=== PATIENT | female | born 1990 | race Caucasian/White ===

== ENCOUNTER 2017-04-15 23:24 | Emergency (ER) | payer BC ==
[2017-04-16] MEDS ORDERED: ONDANSETRON 4 MG/2 ML VIAL IVP STA (00:26)
[2017-04-16] MEDS ORDERED: HYDROmorphone 1 MG/ML 1 ML SYRINGE IVP STA ×2 (00:26→01:42)
[2017-04-16] MEDS ORDERED: SODIUM CHLORIDE 0.9% 500 ML IV STA (00:26)
[2017-04-16 00:40] LABS: Basophils % (A) 1 %; CH 30.2; CHCM 33.8; Eosinophils # (A) 0.2 k/uL (0-0.7); Eosinophils % (A) 3 %; HCT 37.5 % (34.0-46.0); HDW 2.72; HGB 12.8 gm/dL (11.4-16.0); Luc % (Auto) 1; Lymphocytes # (A) 1.7 k/uL (1.0-4.8); Lymphocytes % (A) 24 %; MCH 30.7 pg (25.0-35.0); MCHC 34.2 g/dL (31.0-37.0); MCV 89.8 fL (80.0-100.0); Mean Platelet Volume 6.6; Monocytes # (A) 0.3 k/uL (0-1.0); Monocytes % (A) 4 %; Neutrophils # (A) 4.6 k/uL (1.3-7.7); Neutrophils % (A) 67 %; RBC 4.18 m/uL (3.80-5.40); RDW 13.1 % (11.5-15.5); WBC 6.9 k/uL (3.8-10.6); WBC (Perox) 6.99
[2017-04-16 00:44] LABS: Appearance,Urine Cloudy (Clear); Bilirubin,Urine Negative (Negative); Glucose,Urine (UA) Negative (Negative); Ketones,Urine Negative (Negative); Leukocyte Esterase,Urine Trace (Negative); Mucus,Urine Rare /hpf; Nitrite,Urine Negative (Negative); Particle Count 2695; Protein,Urine Negative (Negative); RBC,Urine <1 /hpf (0-5); Specific Gravity,Urine 1.012 (1.001-1.035); Squamous Epithelial Cell,Urine 3 /hpf (0-4); UA Billing (MACRO vs. MICRO) MICRO; Urobilinogen,Urine <2.0 mg/dL (<2.0); WBC,Urine 1 /hpf (0-5)
--- NOTE | 2017-04-16 00:53 | ED ---
General Adult HPI - General Chief complaint: Vaginal Bleeding Stated complaint: lower pelvic pain (post op hysterectomy x 2 wks) Time Seen by Provider: 04/15/17 23:52 Source: patient Mode of arrival: wheelchair Limitations: no limitations - History of Present Illness Initial comments: 27-year-old female patient presents to emergency department today for suprapubic pain. She states that around 11 AM this morning she did have onset of heavy vaginal bleeding that lasted approximately one hour. States she did have passage of a large clot. She states after the clot passed bleeding improved. She states she did have onset of pain at that time. States the pain has continued and seems to be worsening. She states that since that time she did have some clear vaginal discharge that has a foul odor. She states that she did have a transvaginal hysterectomy approximately 2 weeks ago. She states that she had this due to an extensive history of endometriosis and ovarian cysts. She states this procedure was performed by Dr. Maciel at [facility] in [facility]. She states that she had some pain symptoms for a couple days after the surgery however had vastly improved. She states Monday she was cleared to return to work. She states that she has been working however she performs no vigorous activities or heavy lifting while working. She states she is feeling somewhat nauseated with this however has not vomited. She believes this may be due to the pain. Patient denies any recent rash, fever, chills, shortness breath, chest pain, diarrhea, constipation , back pain, numbness, tingling, dizziness, weakness, hematuria, dysuria, urinary urgency, urinary frequency, headache, visual changes, or any other complaints. - Related Data Home Medications Medication Instructions Recorded Confirmed Estradiol [Estrace] 1 tab PO DAILY 04/15/17 04/15/17 HYDROcodone/APAP 5-325MG [[place] 1 tab PO Q6HR 04/15/17 04/15/17 5-325] Allergies Allergy/AdvReac Type Severity Reaction Status Date / Time acetaminophen Allergy Dyspnea Verified 04/15/17 23:30 [From Darvocet-N] ciprofloxacin [From Cipro] Allergy Nausea & Verified 04/15/17 23:30 Vomiting ketorolac [From Toradol] Allergy Dyspnea Verified 04/15/17 23:30 meperidine [From Demerol] Allergy Dyspnea Verified 04/15/17 23:30 propoxyphene Allergy Dyspnea Verified 04/15/17 23:30 [From Darvocet-N] Review of Systems ROS Statement: Those systems with pertinent positive or pertinent negative responses have been documented in the HPI. ROS Other: All systems not noted in ROS Statement are negative. Past Medical History Past Medical History: No Reported History History of Any Multi-Drug Resistant Organisms: None Reported Past Surgical History: Section, Hysterectomy Past Psychological History: No Psychological Hx Reported Smoking Status: Current every day smoker Past Alcohol Use History: None Reported Past Drug Use History: None Reported General Exam Limitations: no limitations General appearance: alert, in no apparent distress, other (This is a well- developed, well-nourished adult female patient in mild distress related to pain. Vital signs upon presentation were temperature 97.3F, pulse 56, respirations 16, blood pressure 118/82, pulse ox 100% on room air.) Eye exam: Present: normal appearance, PERRL, EOMI. Absent: scleral icterus, conjunctival injection, periorbital swelling ENT exam: Present: normal exam, normal oropharynx, mucous membranes moist Respiratory exam: Present: normal lung sounds bilaterally. Absent: respiratory distress, wheezes, rales, rhonchi, stridor Cardiovascular Exam: Present: regular rate, normal rhythm, normal heart sounds. Absent: systolic murmur, diastolic murmur, rubs, gallop, clicks GI/Abdominal exam: Present: soft, normal bowel sounds, other (Upper scopic incisions to abdomen are well approximated and healing. No surrounding erythema , no bulging, no induration.). Absent: distended, tenderness, guarding, rebound , rigid External exam: Present: normal external exam. Absent: erythema, lacerations, ecchymosis Speculum exam: Present: normal speculum exam, vaginal discharge (Light brown vaginal discharge. No odor.), other (Surgically absent cervix. No evidence of bleeding. No evidence of displaced cuff.) Neurological exam: Present: alert, oriented X3, CN II-XII intact Psychiatric exam: Present: normal affect, normal mood Skin exam: Present: warm, dry, intact, normal color. Absent: rash Course Vital Signs 04/15/17 04/16/17 23:26 02:12 Temperature 97.3 F L 98 F Pulse Rate 56 L 78 Respiratory 16 18 Rate Blood Pressure 118/82 112/62 O2 Sat by Pulse 100 98 Oximetry Medical Decision Making - Medical Decision Making 27-year-old female patient presented for evaluation of lower abdominal cramping and vaginal bleeding. The vaginal bleeding had occurred earlier in the day around 11 AM and she had not had any recurrence. Patient did have a transvaginal hysterectomy two weeks ago. Labs are unremarkable. Pelvic examination is unremarkable. Did perform a vaginal culture. Patient was feeling better after receiving Dilaudid. She'll be discharged home to follow- up as soon as possible with her surgeon. She is instructed to follow-up with her primary care physician for recheck in 1-2 days. She is instructed to return here immediately for any new, worsening, or concerning symptoms. Otherwise understanding and agreed with this plan. - Lab Data Result diagrams: 04/15/17 23:45 04/16/17 00:01 Lab Results 04/15/17 04/15/17 04/16/17 Range/Units 23:45 23:45 00:01 WBC 6.9 (3.8-10.6) k/uL RBC 4.18 (3.80-5.40) m/uL Hgb 12.8 (11.4-16.0) gm/dL Hct 37.5 (34.0-46.0) % MCV 89.8 (80.0-100.0) fL MCH 30.7 (25.0-35.0) pg MCHC 34.2 (31.0-37.0) g/dL RDW 13.1 (11.5-15.5) % Plt Count 233 (150-450) k/uL Neutrophils % 67 % Lymphocytes % 24 % Monocytes % 4 % Eosinophils % 3 % Basophils % 1 % Neutrophils # 4.6 (1.3-7.7) k/uL Lymphocytes # 1.7 (1.0-4.8) k/uL Monocytes # 0.3 (0-1.0) k/uL Eosinophils # 0.2 (0-0.7) k/uL Basophils # 0.0 (0-0.2) k/uL Sodium 140 (137-145) mmol/L Potassium 4.3 (3.5-5.1) mmol/L Chloride 105 (98-107) mmol/L Carbon Dioxide 23 (22-30) mmol/L Anion Gap 12 mmol/L BUN 14 (7-17) mg/dL Creatinine 0.80 (0.52-1.04) mg/dL Est GFR (MDRD) Af Amer >60 (>60 ml/min/1.73 sqM) Est GFR (MDRD) Non-Af >60 (>60 ml/min/1.73 sqM) Glucose 95 (74-99) mg/dL Calcium 9.9 (8.4-10.2) mg/dL Total Bilirubin 0.2 (0.2-1.3) mg/dL AST 20 (14-36) U/L ALT 30 (9-52) U/L Alkaline Phosphatase 73 (38-126) U/L Total Protein 7.3 (6.3-8.2) g/dL Albumin 4.1 (3.5-5.0) g/dL Urine Color Light Yellow Urine Appearance Cloudy H (Clear) Urine pH 6.0 (5.0-8.0) Ur Specific [place] 1.012 (1.001-1.035) Urine Protein Negative (Negative) Urine Glucose (UA) Negative (Negative) Urine Ketones Negative (Negative) Urine Blood Negative (Negative) Urine Nitrite Negative (Negative) Urine Bilirubin Negative (Negative) Urine Urobilinogen <2.0 (<2.0) mg/dL Ur Leukocyte Esterase Trace H (Negative) Urine RBC <1 (0-5) /hpf Urine WBC 1 (0-5) /hpf Ur Squamous Epith Cells 3 (0-4) /hpf Urine Mucus Rare H (None) /hpf Disposition Clinical Impression: Pelvic pain, Vaginal bleeding Disposition: HOME SELF-CARE Condition: Good Instructions: Pelvic Pain (ED) Additional Instructions: Follow-up with your surgeon in 1-2 days for recheck. Follow-up with her primary care physician for recheck. Return here immediately for any new, worsening, or concerning symptoms. Referrals: None,Stated [Primary Care Provider] - 1-2 days Time of Disposition: 02:03
[2017-04-16 00:54] LABS: ALT 30 U/L (9-52); AST 20 U/L (14-36); Alkaline Phosphatase 73 U/L (38-126); Anion Gap 12 mmol/L; Blood Urea Nitrogen 14 mg/dL (7-17); Calcium 9.9 mg/dL (8.4-10.2); Carbon Dioxide 23 mmol/L (22-30); Chloride 105 mmol/L (98-107); Glucose 95 mg/dL (74-99); Non-African American GFR(MDRD) >60 (>60 ml/min/1.73 sqM); Potassium 4.3 mmol/L (3.5-5.1); Sodium 140 mmol/L (137-145); Total Bilirubin 0.2 mg/dL (0.2-1.3); Total Protein 7.3 g/dL (6.3-8.2)
[2017-04-16 02:13] VITALS: BP 112/62; PULSE 78; RESP 18; TEMP 98
== END 2017-04-16 02:13 | disposition home or self-care (01) ==
LOC: EC 23:24 → MERGE 23:24 → EC 04-16 02:13
DX: N93.9 Abnormal uterine and vaginal bleeding, unspecified (principal); R10.2 Pelvic and perineal pain; F17.200 Nicotine dependence, unspecified, uncomplicated; Z79.891 Long term (current) use of opiate analgesic; Z79.3 Long term (current) use of hormonal contraceptives; Z88.1 Allergy status to other antibiotic agents; Z88.5 Allergy status to narcotic agent; Z88.6 Allergy status to analgesic agent
CPT/HCPCS: 96376 ×2; 96374 ×2; 96375 ×2; 99284 ×2; 36415 ×2; 80053; 85025; 81001; 87070; J2405; J1170; 87205

== ENCOUNTER 2017-11-24 18:50 | Emergency (ER) | payer BC, OTHER ==
[2017-11-24 19:21] VITALS: RESP 18
[2017-11-24] MEDS ORDERED: SODIUM CHLORIDE 0.9% 1,000 ML IV ONE (20:12)
[2017-11-24] MEDS ORDERED: MORPHINE SULFATE 4 MG/ML SYRINGE IVP STA (20:12)
[2017-11-24] MEDS ORDERED: ONDANSETRON 4 MG/2 ML VIAL IVP STA (20:12)
[2017-11-24 20:32] LABS: Basophils % (A) 0 %; Eosinophils # (A) 0.1 k/uL (0-0.7); Eosinophils % (A) 2 %; HCT 36.7 % (34.0-46.0); HGB 12.9 gm/dL (11.4-16.0); Lymphocytes # (A) 1.3 k/uL (1.0-4.8); Lymphocytes % (A) 22 %; MCH 29.3 pg (25.0-35.0); MCHC 35.1 g/dL (31.0-37.0); MCV 83.6 fL (80.0-100.0); Mean Platelet Volume 7.3; Monocytes # (A) 0.3 k/uL (0-1.0); Monocytes % (A) 5 %; Neutrophils # (A) 4.1 k/uL (1.3-7.7); Neutrophils % (A) 70 %; Platelet Count 163 k/uL (150-450); RBC 4.38 m/uL (3.80-5.40); RDW 13.7 % (11.5-15.5); WBC 5.8 k/uL (3.8-10.6)
[2017-11-24 20:34] LABS: Appearance,Urine Cloudy (Clear); Bilirubin,Urine Negative (Negative); Blood,Urine Large (Negative); Color,Urine Light Red; Glucose,Urine (UA) Negative (Negative); Ketones,Urine 1+ (Negative); Leukocyte Esterase,Urine Trace (Negative); Mucus,Urine Many /hpf; Nitrite,Urine Negative (Negative); Protein,Urine Trace (Negative); RBC,Urine >182 /hpf (0-5); Squamous Epithelial Cell,Urine 13 /hpf (0-4)
[2017-11-24 20:41] LABS: ALT 31 U/L (9-52); AST 21 U/L (14-36); Albumin 4.7 g/dL (3.5-5.0); Alkaline Phosphatase 74 U/L (38-126); Anion Gap 16 mmol/L; Blood Urea Nitrogen 8 mg/dL (7-17); Carbon Dioxide 23 mmol/L (22-30); Chloride 104 mmol/L (98-107); Glucose 89 mg/dL (74-99); Potassium 3.7 mmol/L (3.5-5.1); Sodium 143 mmol/L (137-145); Total Bilirubin 0.4 mg/dL (0.2-1.3); Total Protein 7.6 g/dL (6.3-8.2)
[2017-11-24] MEDS ORDERED: HYDROcodone/APAP 5-325MG 1 EACH TAB PO STA (21:07)
[2017-11-24] MEDS ORDERED: IBUPROFEN 600 MG TAB PO STA (21:07)
[2017-11-24] MEDS ORDERED: TAMSULOSIN 0.4 MG CAP.ER.24H PO STA (21:07)
--- NOTE | 2017-11-24 21:17 | US ---
EXAMINATION TYPE: US kidneys/renal and bladder DATE OF EXAM: 11/24/2017 COMPARISON: CT 05/01/2016 CLINICAL HISTORY: Left side Pain. Hematuria per patient EXAM MEASUREMENTS: Right Kidney: 9.2 x 4.1 x 3.9 cm Left Kidney: 10.0 x 4.6 x 3.9 cm Right Kidney: No hydronephrosis or masses seen Left Kidney: No hydronephrosis or masses seen Bladder: Not distended Bilateral Jets seen: No, bladder not distended. No hydronephrosis. . IMPRESSION: No evidence of renal stone or mass or obstruction. Bladder was almost empty for the exam. No hydronephrosis.
--- NOTE | 2017-11-24 21:28 | ED ---
Abdominal Pain HPI - General Chief Complaint: Abdominal Pain Stated Complaint: Pelvic pain Time Seen by Provider: 11/24/17 19:57 Source: patient Mode of arrival: ambulatory Limitations: no limitations - History of Present Illness Initial Comments: 27-year-old female patient percents the emergency department today for evaluation of left-sided flank pain. Patient states his been going on since this this afternoon. States it started suddenly. States that she did have a small amount of urinary incontinence at time of onset. Patient states that she has had kidney stones in the past and this feels similar. States that the pain radiates around into her left lower quadrant. States that she has had hematuria. States that she is feeling nauseated but has not vomited. She denies any fever, chills, constipation, diarrhea, vaginal bleeding, vaginal discharge, dizziness, or weakness. Patient has had a total hysterectomy and denies chance of . - Related Data Home Medications Medication Instructions Recorded Confirmed Estradiol [Estrace] 1 mg PO DAILY 04/15/17 11/24/17 Butalb/APAP/Caff 50-325-40Mg 1 tab PO DAILY PRN 11/24/17 11/24/17 [Fioricet 50-325-40] Multivitamins, Thera [Multivitamin 1 tab PO DAILY 11/24/17 11/24/17 (formulary)] Potassium Chloride [Klor-Con 10] 10 meq PO DAILY 11/24/17 11/24/17 Previous Rx's Medication Instructions Recorded Hydrocodone/Acetaminophen [[place] 1 tab PO Q6HR PRN #12 tab 11/24/17 5-325] Ibuprofen [Motrin] 600 mg PO Q8HR PRN #30 tab 11/24/17 Ondansetron [Zofran ODT] 4 mg PO Q8HR PRN #10 tab 11/24/17 Tamsulosin HCl [Flomax] 0.4 mg PO DAILY #7 cap 11/24/17 Allergies Allergy/AdvReac Type Severity Reaction Status Date / Time acetaminophen Allergy Dyspnea Verified 11/24/17 19:42 [From Darvocet-N] ciprofloxacin [From Cipro] Allergy Nausea & Verified 11/24/17 19:42 Vomiting ketorolac [From Toradol] Allergy Rash/Hives Verified 11/24/17 19:42 meperidine [From Demerol] Allergy Rash/Hives Verified 11/24/17 19:42 propoxyphene Allergy Dyspnea Verified 11/24/17 19:42 [From DarFindMySongt-N] Review of Systems ROS Statement: Those systems with pertinent positive or pertinent negative responses have been documented in the HPI. ROS Other: All systems not noted in ROS Statement are negative. Past Medical History Past Medical History: No Reported History Additional Past Medical History / Comment(s): hep C History of Any Multi-Drug Resistant Organisms: None Reported Past Surgical History: Section, Hysterectomy Additional Past Surgical History / Comment(s): laparoscopy Past Psychological History: No Psychological Hx Reported Smoking Status: Current every day smoker Past Alcohol Use History: None Reported Past Drug Use History: None Reported General Exam Limitations: no limitations General appearance: alert, in no apparent distress, other (This is a well- developed, well-nourished adult female patient in mild distress related to pain. Vital signs upon presentation are temperature 98.2F, pulse 87, respirations 18, blood pressure 111/73, pulse ox 99% on room air.) Eye exam: Present: normal appearance, PERRL, EOMI. Absent: scleral icterus, conjunctival injection, periorbital swelling ENT exam: Present: normal exam, normal oropharynx, mucous membranes moist Respiratory exam: Present: normal lung sounds bilaterally. Absent: respiratory distress, wheezes, rales, rhonchi, stridor Cardiovascular Exam: Present: regular rate, normal rhythm, normal heart sounds. Absent: systolic murmur, diastolic murmur, rubs, gallop, clicks GI/Abdominal exam: Present: soft, normal bowel sounds. Absent: distended, tenderness, guarding, rebound, rigid Back exam: Present: normal inspection, CVA tenderness (L). Absent: CVA tenderness (R) Neurological exam: Present: alert, oriented X3, CN II-XII intact Psychiatric exam: Present: normal affect, normal mood Skin exam: Present: warm, dry, intact, normal color. Absent: rash Course Vital Signs 11/24/17 11/24/17 19:17 21:57 Temperature 98.2 F 97.6 F Pulse Rate 87 56 L Respiratory 18 18 Rate Blood Pressure 111/73 106/58 O2 Sat by Pulse 99 100 Oximetry Medical Decision Making - Medical Decision Making 27-year-old female patient percents to to the emergency department today for complaints of left flank pain and nausea. Physical examination did reveal some mild CVA tenderness. No abdominal tenderness was noted. Labs reviewed and did show urinalysis positive for large amount of blood but no evidence of infection. Patient is afebrile. Patient states symptoms are somewhat her previous kidney stones. Ultrasound shows no evidence of hydronephrosis. We will treat patient for kidney stone with Flomax, pain management, and antiemetics. She is instructed to follow-up with urology as soon as possible. Return parameters discussed in detail. She verbalizes understanding and agrees with this plan. - Lab Data Result diagrams: 11/24/17 19:48 11/24/17 19:48 Lab Results 11/24/17 11/24/17 11/24/17 Range/Units 19:48 19:48 19:48 WBC 5.8 (3.8-10.6) k/uL RBC 4.38 (3.80-5.40) m/uL Hgb 12.9 (11.4-16.0) gm/dL Hct 36.7 (34.0-46.0) % MCV 83.6 (80.0-100.0) fL MCH 29.3 (25.0-35.0) pg MCHC 35.1 (31.0-37.0) g/dL RDW 13.7 (11.5-15.5) % Plt Count 163 (150-450) k/uL Neutrophils % 70 % Lymphocytes % 22 % Monocytes % 5 % Eosinophils % 2 % Basophils % 0 % Neutrophils # 4.1 (1.3-7.7) k/uL Lymphocytes # 1.3 (1.0-4.8) k/uL Monocytes # 0.3 (0-1.0) k/uL Eosinophils # 0.1 (0-0.7) k/uL Basophils # 0.0 (0-0.2) k/uL Sodium 143 (137-145) mmol/L Potassium 3.7 (3.5-5.1) mmol/L Chloride 104 (98-107) mmol/L Carbon Dioxide 23 (22-30) mmol/L Anion Gap 16 mmol/L BUN 8 (7-17) mg/dL Creatinine 0.79 (0.52-1.04) mg/dL Est GFR (CKD-EPI)AfAm >90 (>60 ml/min/1.73 sqM) Est GFR (CKD-EPI)NonAf >90 (>60 ml/min/1.73 sqM) Glucose 89 (74-99) mg/dL Calcium 10.0 (8.4-10.2) mg/dL Total Bilirubin 0.4 (0.2-1.3) mg/dL AST 21 (14-36) U/L ALT 31 (9-52) U/L Alkaline Phosphatase 74 (38-126) U/L Total Protein 7.6 (6.3-8.2) g/dL Albumin 4.7 (3.5-5.0) g/dL Urine Color Light Red Urine Appearance Cloudy H (Clear) Urine pH 6.0 (5.0-8.0) Ur Specific [place] 1.020 (1.001-1.035) Urine Protein Trace H (Negative) Urine Glucose (UA) Negative (Negative) Urine Ketones 1+ H (Negative) Urine Blood Large H (Negative) Urine Nitrite Negative (Negative) Urine Bilirubin Negative (Negative) Urine Urobilinogen 2.0 (<2.0) mg/dL Ur Leukocyte Esterase Trace H (Negative) Urine RBC >182 H (0-5) /hpf Ur Squamous Epith Cells 13 H (0-4) /hpf Urine Mucus Many H (None) /hpf - Radiology Data Radiology results: report reviewed, image reviewed Ultrasound of the kidneys and bladder were obtained. Right kidney shows no hydronephrosis or masses. Left kidney shows no hydronephrosis or masses. Bladder is not distended. Impression by Dr. Elizabeth shows no evidence of renal stone or mass or obstruction. Bladder was almost empty for exam. No hydronephrosis. Disposition Clinical Impression: Kidney stone on left side Disposition: HOME SELF-CARE Condition: Good Instructions: Kidney Stones (ED), How to Strain Your Urine (ED) Additional Instructions: Increase fluids. Follow-up with urology as soon as possible. Take medications as directed. Return here immediately for any new, worsening, or concerning symptoms. Prescriptions: Hydrocodone/Acetaminophen [[place] 5-325] 1 tab PO Q6HR PRN #12 tab PRN Reason: Pain Ibuprofen [Motrin] 600 mg PO Q8HR PRN #30 tab PRN Reason: Pain Ondansetron [Zofran ODT] 4 mg PO Q8HR PRN #10 tab PRN Reason: Nausea Tamsulosin HCl [Flomax] 0.4 mg PO DAILY #7 cap Is patient prescribed a controlled substance at d/c from ED?: Yes When asked, does pt state using other controlled substances?: No Referrals: None,Stated [Primary Care Provider] - 1-2 days Time of Disposition: 21:28
[2017-11-24 21:58] VITALS: BP 106/58; PULSE 56; TEMP 97.6
== END 2017-11-24 21:59 | disposition home or self-care (01) ==
LOC: EC 18:50
DX: N20.0 Calculus of kidney (principal); F17.200 Nicotine dependence, unspecified, uncomplicated; Z86.19 Personal history of other infectious and parasitic diseases; Z79.3 Long term (current) use of hormonal contraceptives; Z79.899 Other long term (current) drug therapy; Z88.1 Allergy status to other antibiotic agents; Z88.5 Allergy status to narcotic agent; Z88.6 Allergy status to analgesic agent
CPT/HCPCS: 36415; 80053; 85025; 81001; 87086; 76770; 99284; 96374; 96375; 96361; J2270; J2405

== ENCOUNTER 2019-06-02 00:37 | Emergency (ER) | payer OTHER ==
[2019-06-02] MEDS ORDERED: SODIUM CHLORIDE 0.9% 1,000 ML IV STA (00:57)
[2019-06-02] MEDS ORDERED: ONDANSETRON 4 MG/2 ML VIAL IVP STA (00:57)
[2019-06-02] MEDS ORDERED: HYDROmorphone 1 MG/ML 1 ML SYRINGE IVP STA ×2 (00:57→02:22)
--- NOTE | 2019-06-02 01:06 | ED ---
Abdominal Pain HPI - General Chief Complaint: Abdominal Pain Stated Complaint: Hematuria Abd Pain Time Seen by Provider: 06/02/19 00:50 Source: patient Mode of arrival: ambulatory Limitations: no limitations - History of Present Illness Initial Comments: 29-year-old female patient presents to the emergency department today for evaluation of left flank pain and left lower quadrant abdominal pain. Patient states this started a few hours ago. Patient states the pain is waxing and waning. States she is having hematuria. She does have history of kidney stones and states this pain feels similar. States she has had some nausea and a couple episodes of vomiting. Denies fever or chills. Patient has history of hysterectomy. Denies any cough or congestion. Patient denies any recent rash, shortness breath, chest pain, diarrhea, constipation, back pain, numbness, tingling, dizziness, weakness, hematuria, dysuria, urinary urgency, urinary frequency, headache, visual changes, or any other complaints. - Related Data Home Medications Medication Instructions Recorded Confirmed Estradiol [Estrace] 2 mg PO DAILY 04/15/17 06/02/19 Previous Rx's Medication Instructions Recorded Cephalexin [Keflex] 500 mg PO Q6HR #40 cap 06/02/19 Ibuprofen [Motrin] 600 mg PO Q8HR PRN #30 tab 06/02/19 Ondansetron [Zofran ODT] 4 mg PO Q8HR PRN #10 tab 06/02/19 Tamsulosin HCl [Flomax] 0.4 mg PO DAILY #7 cap 06/02/19 Allergies Allergy/AdvReac Type Severity Reaction Status Date / Time acetaminophen Allergy Dyspnea Verified 11/24/17 19:42 [From Darvocet-N] ciprofloxacin [From Cipro] Allergy Nausea & Verified 11/24/17 19:42 Vomiting ketorolac [From Toradol] Allergy Rash/Hives Verified 11/24/17 19:42 meperidine [From Demerol] Allergy Rash/Hives Verified 11/24/17 19:42 propoxyphene Allergy Dyspnea Verified 11/24/17 19:42 [From Darvocet-N] Review of Systems ROS Statement: Those systems with pertinent positive or pertinent negative responses have been documented in the HPI. ROS Other: All systems not noted in ROS Statement are negative. Past Medical History Past Medical History: No Reported History Additional Past Medical History / Comment(s): hep C History of Any Multi-Drug Resistant Organisms: None Reported Past Surgical History: Section, Hysterectomy Additional Past Surgical History / Comment(s): laparoscopy Past Psychological History: No Psychological Hx Reported Smoking Status: Current every day smoker Past Alcohol Use History: None Reported Past Drug Use History: None Reported General Exam Limitations: no limitations General appearance: alert, in no apparent distress, other (This is a well- developed, well-nourished adult female patient in mild distress related to pain. Vital signs upon presentation are temperature 97.8F, pulse 73, respirations 20, blood pressure 117/78, pulse ox 98% on room air.) Eye exam: Present: normal appearance, PERRL, EOMI. Absent: scleral icterus, conjunctival injection, periorbital swelling ENT exam: Present: normal exam, normal oropharynx, mucous membranes moist Respiratory exam: Present: normal lung sounds bilaterally. Absent: respiratory distress, wheezes, rales, rhonchi, stridor Cardiovascular Exam: Present: regular rate, normal rhythm, normal heart sounds. Absent: systolic murmur, diastolic murmur, rubs, gallop, clicks GI/Abdominal exam: Present: soft, tenderness (Left pelvic tenderness), normal bowel sounds. Absent: distended, guarding, rebound, rigid Neurological exam: Present: alert, oriented X3, CN II-XII intact Psychiatric exam: Present: normal affect, normal mood Skin exam: Present: warm, dry, intact, normal color. Absent: rash Course Vital Signs 06/02/19 06/02/19 06/02/19 00:43 02:21 03:00 Temperature 97.8 F Pulse Rate 73 89 89 Respiratory 20 18 17 Rate Blood Pressure 117/78 104/78 99/58 O2 Sat by Pulse 98 99 99 Oximetry Medical Decision Making - Medical Decision Making 29-year-old female patient presented to the emergency department today for evaluation of left flank pain and left lower quadrant abdominal pain. Physical examination did reveal left lower quadrant tenderness. No CVA tenderness. Labs reviewed and did reveal elevated BUN at 23. Urinalysis showed cloudy appearance with 1+ protein, trace ketones, large amount of blood. Small leukocyte esterase, greater than 182 red blood cells, 142 white blood cells, 11 squamous epithelial cells, rare bacteria, 83 hyalin casts, and many urine mucus. Patient was given 2 doses of Dilaudid, had minimal improvement in symptoms we did perform CT of the abdomen and pelvis. There is no evidence for kidney stone or other cause for her symptoms. She is given additional dose of morphine, this did seem to improve symptoms. We did discuss possibility of a passed kidney stone as well as infection in the bladder. She'll be treated with Keflex, Flomax, and nausea and pain medication. She is instructed to follow-up with her primary care physician for recheck as soon as possible. She is instructed to follow-up with urology as needed. Return parameters discussed in detail. She verbalizes understanding and agrees with this plan. - Lab Data Result diagrams: 06/02/19 01:25 06/02/19 01:25 Lab Results 06/02/19 06/02/19 06/02/19 Range/Units 01:15 01:25 01:25 WBC 9.5 (3.8-10.6) k/uL RBC 4.16 (3.80-5.40) m/uL Hgb 12.0 (11.4-16.0) gm/dL Hct 36.0 (34.0-46.0) % MCV 86.3 (80.0-100.0) fL MCH 28.9 (25.0-35.0) pg MCHC 33.4 (31.0-37.0) g/dL RDW 13.4 (11.5-15.5) % Plt Count 205 (150-450) k/uL Neutrophils % 76 % Lymphocytes % 16 % Monocytes % 4 % Eosinophils % 2 % Basophils % 0 % Neutrophils # 7.2 (1.3-7.7) k/uL Lymphocytes # 1.6 (1.0-4.8) k/uL Monocytes # 0.4 (0-1.0) k/uL Eosinophils # 0.1 (0-0.7) k/uL Basophils # 0.0 (0-0.2) k/uL Sodium 139 (137-145) mmol/L Potassium 4.0 (3.5-5.1) mmol/L Chloride 105 (98-107) mmol/L Carbon Dioxide 24 (22-30) mmol/L Anion Gap 10 mmol/L BUN 23 H (7-17) mg/dL Creatinine 0.92 (0.52-1.04) mg/dL Est GFR (CKD-EPI)AfAm >90 (>60 ml/min/1.73 sqM) Est GFR (CKD-EPI)NonAf 84 (>60 ml/min/1.73 sqM) Glucose 105 H (74-99) mg/dL Calcium 9.5 (8.4-10.2) mg/dL Total Bilirubin 0.1 L (0.2-1.3) mg/dL AST 26 (14-36) U/L ALT 34 (9-52) U/L Alkaline Phosphatase 79 (38-126) U/L Total Protein 7.5 (6.3-8.2) g/dL Albumin 4.2 (3.5-5.0) g/dL Amylase 33 (30-110) U/L Lipase 68 (23-300) U/L Urine Color Light Red Urine Appearance Cloudy H (Clear) Urine pH 5.5 (5.0-8.0) Ur Specific [place] 1.026 (1.001-1.035) Urine Protein 1+ H (Negative) Urine Glucose (UA) Negative (Negative) Urine Ketones Trace H (Negative) Urine Blood Large H (Negative) Urine Nitrite Negative (Negative) Urine Bilirubin Negative (Negative) Urine Urobilinogen <2.0 (<2.0) mg/dL Ur Leukocyte Esterase Small H (Negative) Urine RBC >182 H (0-5) /hpf Urine WBC 142 H (0-5) /hpf Ur Squamous Epith Cells 11 H (0-4) /hpf Urine Bacteria Rare H (None) /hpf Hyaline Casts 83 H (0-2) /lpf Urine Mucus Many H (None) /hpf - Radiology Data Radiology results: report reviewed, image reviewed 2 views x-ray of the abdomen is obtained. Report was reviewed in its entirety. Impression by Dr. Elizabeth shows nonacute abdomen. CT abdomen and pelvis without contrast was obtained. Report was reviewed in its entirety. Impression by Dr. Elizabeth shows no sign of acute abdomen and pelvis. There is probably a cyst on the right ovary. No renal stone or obstruction. I do not see across her left flank pain. Disposition Clinical Impression: Left flank pain, Hematuria, Urinary tract infection Disposition: HOME SELF-CARE Condition: Good Instructions (If sedation given, give patient instructions): Urinary Tract Infection in Women (ED), Hematuria (ED), Abdominal Pain (ED), Flank Pain (ED) Additional Instructions: Increase fluids. Complete antibiotic prescription in full. Take medications as directed. Follow-up with your primary care physician for recheck in 1-2 days. Return to the emergency department immediately for any new, worsening, or concerning symptoms. Prescriptions: Tamsulosin HCl [Flomax] 0.4 mg PO DAILY #7 cap Cephalexin [Keflex] 500 mg PO Q6HR #40 cap Ibuprofen [Motrin] 600 mg PO Q8HR PRN #30 tab PRN Reason: Pain Ondansetron [Zofran ODT] 4 mg PO Q8HR PRN #10 tab PRN Reason: Nausea Is patient prescribed a controlled substance at d/c from ED?: No Referrals: Roberto Abarca DO [STAFF PHYSICIAN] - 1-2 days Gildardo Fung MD [STAFF PHYSICIAN] - 1-2 days Time of Disposition: 03:53
[2019-06-02 01:50] LABS: Basophils % (A) 0 %; Eosinophils # (A) 0.1 k/uL (0-0.7); Eosinophils % (A) 2 %; Lymphocytes # (A) 1.6 k/uL (1.0-4.8); Lymphocytes % (A) 16 %; MCH 28.9 pg (25.0-35.0); MCHC 33.4 g/dL (31.0-37.0); MCV 86.3 fL (80.0-100.0); Monocytes # (A) 0.4 k/uL (0-1.0); Monocytes % (A) 4 %; Neutrophils # (A) 7.2 k/uL (1.3-7.7); Neutrophils % (A) 76 %; Platelet Count 205 k/uL (150-450); RBC 4.16 m/uL (3.80-5.40); RDW 13.4 % (11.5-15.5); WBC 9.5 k/uL (3.8-10.6)
[2019-06-02 02:03] LABS: ALT 34 U/L (9-52); AST 26 U/L (14-36); African American GFR (CKD) >90 (>60 ml/min/1.73 sqM); Albumin 4.2 g/dL (3.5-5.0); Alkaline Phosphatase 79 U/L (38-126); Amylase 33 U/L (30-110); Anion Gap 10 mmol/L; Blood Urea Nitrogen 23 mg/dL (7-17); Calcium 9.5 mg/dL (8.4-10.2); Carbon Dioxide 24 mmol/L (22-30); Chloride 105 mmol/L (98-107); Glucose 105 mg/dL (74-99); Sodium 139 mmol/L (137-145); Total Bilirubin 0.1 mg/dL (0.2-1.3); Total Protein 7.5 g/dL (6.3-8.2)
[2019-06-02 02:07] LABS: Appearance,Urine Cloudy (Clear); Bacteria,Urine Rare /hpf; Bilirubin,Urine Negative (Negative); Blood,Urine Large (Negative); Color,Urine Light Red; Glucose,Urine (UA) Negative (Negative); Hyaline Casts,Urine 83 /lpf (0-2); Ketones,Urine Trace (Negative); Leukocyte Esterase,Urine Small (Negative); Mucus,Urine Many /hpf; Nitrite,Urine Negative (Negative); PH, Urine 5.5 (5.0-8.0); Protein,Urine 1+ (Negative); RBC,Urine >182 /hpf (0-5); Specific Gravity,Urine 1.026 (1.001-1.035); Squamous Epithelial Cell,Urine 11 /hpf (0-4); Urobilinogen,Urine <2.0 mg/dL (<2.0)
[2019-06-02] MEDS ORDERED: TAMSULOSIN 0.4 MG CAP.ER.24H PO STA (02:13)
--- NOTE | 2019-06-02 02:25 | XR ---
EXAMINATION TYPE: XR KUB DATE OF EXAM: 06/02/2019 COMPARISON: NONE HISTORY: Abdominal pain TECHNIQUE: 2 views upright FINDINGS: Bowel gas pattern is normal. There is no sign of intestinal obstruction or pneumoperitoneum . Fecal pattern is normal. Lung bases are clear. There are no pathologic calcifications over the kidn eys. IMPRESSION: Nonacute abdomen.
[2019-06-02] MEDS ORDERED: MORPHINE SULFATE 4 MG/ML SYRINGE IVP STA (03:05)
[2019-06-02] MEDS ORDERED: NAPROXEN 250 MG TAB PO STA (03:06)
--- NOTE | 2019-06-02 03:39 | CT ---
EXAMINATION TYPE: CT abdomen pelvis wo con DATE OF EXAM: 06/02/2019 COMPARISON: 05/01/2016 HISTORY: Patient presents with left sided flank pain. CT DLP: 672.4 mGycm Automated exposure control for dose reduction was used. TECHNIQUE: Helical acquisition of images was performed from the lung bases through the pelvis. FINDINGS: Lung bases are clear. There is no pleural effusion. Heart size is normal. There is no pericardial eff usion. Stomach appears normal. Liver spleen pancreas gallbladder appear normal. Bile ducts are not di lated. There is no adrenal mass. Kidneys have normal size and contour. There is no hydronephrosis. Ureters a re not dilated. There is no retroperitoneal adenopathy. Bladder distends smoothly. There is hysterectomy. There is no evidence of free fluid in the pelvis. T here is probably a 2 cm cyst on the right ovary. There is no inguinal hernia. There is no mesenteric edema. There is no ascites or free air. There are clips apparently from append ectomy. Appendix is not seen. There is no sign of a bowel obstruction. Lumbar spine is intact. Disc s paces are normal. Bony pelvis is intact. Facet joints appear normal. IMPRESSION: NO SIGN OF ACUTE ABDOMEN AND PELVIS. THERE IS PROBABLY A CYST ON THE RIGHT OVARY. NO RENAL STONE OR O BSTRUCTION. I DO NOT SEE A CAUSE FOR LEFT FLANK PAIN.
[2019-06-02] MEDS ORDERED: IBUPROFEN 600 MG STARTER PACK 4 TAB BTL PO STA (03:51)
[2019-06-02] MEDS ORDERED: ONDANSETRON 4 MG ODT STARTER PACK 2 TAB BTL PO STA (03:51)
[2019-06-02] MEDS ORDERED: ACET/COD 300 MG/30 MG STARTER PACK 6 TAB BTL PO STA (03:51)
[2019-06-02] MEDS ORDERED: CEPHALEXIN 500MG STARTER PACK 4 CAP BTL PO STA (03:52)
[2019-06-02 04:06] VITALS: BP 110/83; PULSE 77; RESP 18; TEMP 97.9
== END 2019-06-02 04:11 | disposition home or self-care (01) ==
LOC: EC 00:37
DX: N39.0 Urinary tract infection, site not specified (principal); R79.89 Other specified abnormal findings of blood chemistry; R11.2 Nausea with vomiting, unspecified; F17.200 Nicotine dependence, unspecified, uncomplicated; Z88.1 Allergy status to other antibiotic agents; Z88.5 Allergy status to narcotic agent; Z88.6 Allergy status to analgesic agent; Z79.890 Hormone replacement therapy; Z90.710 Acquired absence of both cervix and uterus; Z87.442 Personal history of urinary calculi
CPT/HCPCS: 36415; 80053; 82150; 83690; 85025; 81001; 87086; 74018; 74176; 99284; 96374; 96376; 96375 ×2; 96361; J2270; J2405; J1170; S0119

== ENCOUNTER 2019-12-10 18:29 | Emergency (ER) | payer OTHER ==
[2019-12-10] MEDS ORDERED: ONDANSETRON 4 MG/2 ML VIAL IVP STA (20:27)
[2019-12-10] MEDS ORDERED: MORPHINE SULFATE 4 MG/ML SYRINGE IV STA ×2 (20:27→21:15)
[2019-12-10] MEDS ORDERED: SODIUM CHLORIDE 0.9% 1,000 ML IV STA (20:27)
[2019-12-10 20:41] VITALS: TEMP 98.3
[2019-12-10 20:42] LABS: Basophils % (A) 0 %; Eosinophils # (A) 0.1 k/uL (0-0.7); Eosinophils % (A) 2 %; Lymphocytes # (A) 1.6 k/uL (1.0-4.8); Lymphocytes % (A) 24 %; MCH 29.8 pg (25.0-35.0); MCHC 34.1 g/dL (31.0-37.0); MCV 87.4 fL (80.0-100.0); Mean Platelet Volume 7.3; Monocytes # (A) 0.3 k/uL (0-1.0); Monocytes % (A) 4 %; Neutrophils # (A) 4.7 k/uL (1.3-7.7); Neutrophils % (A) 69 %; Platelet Count 174 k/uL (150-450); RBC 4.35 m/uL (3.80-5.40); RDW 13.5 % (11.5-15.5); WBC 6.9 k/uL (3.8-10.6)
[2019-12-10 20:46] LABS: Appearance,Urine Cloudy (Clear); Bilirubin,Urine Negative (Negative); Blood,Urine Large (Negative); Color,Urine Red; Glucose,Urine (UA) Negative (Negative); Ketones,Urine Negative (Negative); Leukocyte Esterase,Urine Small (Negative); Mucus,Urine Moderate /hpf; Nitrite,Urine Negative (Negative); Protein,Urine 1+ (Negative); RBC,Urine >182 /hpf (0-5); Specific Gravity,Urine 1.024 (1.001-1.035); Urobilinogen,Urine <2.0 mg/dL (<2.0); WBC,Urine 22 /hpf (0-5)
[2019-12-10 20:48] LABS: ALT 21 U/L (4-34); AST 21 U/L (14-36); African American GFR (CKD) >90 (>60 ml/min/1.73 sqM); Albumin 4.4 g/dL (3.5-5.0); Alkaline Phosphatase 64 U/L (38-126); Anion Gap 10 mmol/L; Blood Urea Nitrogen 17 mg/dL (7-17); Calcium 9.9 mg/dL (8.4-10.2); Carbon Dioxide 26 mmol/L (22-30); Chloride 103 mmol/L (98-107); Glucose 97 mg/dL (74-99); Non-African American GFR(CKD) >90 (>60 ml/min/1.73 sqM); Potassium 3.9 mmol/L (3.5-5.1); Sodium 139 mmol/L (137-145); Total Bilirubin <0.1 mg/dL (0.2-1.3); Total Protein 7.7 g/dL (6.3-8.2)
--- NOTE | 2019-12-10 21:12 | XR ---
EXAMINATION TYPE: XR KUB DATE OF EXAM: 12/10/2019 COMPARISON: 06/02/2019 HISTORY: Abdominal pain TECHNIQUE: FINDINGS: 2 views upright were obtained and show no sign of intestinal obstruction or pneumoperitoneu m. Fecal pattern is normal. Lung bases are clear. There are no pathologic calcifications over the kid neys. IMPRESSION: Nonacute abdomen. No change.
--- NOTE | 2019-12-10 22:13 | US ---
EXAMINATION TYPE: US renals and bladder DATE OF EXAM: 12/10/2019 COMPARISON: CT, US CLINICAL HISTORY: left flank pain hx stone s. Hematuria. Left flank pain x 7 hours. Hx of kidney ston es. EXAM MEASUREMENTS: Right Kidney: 9.4 x 5.5 x 4.6 cm Left Kidney: 9.8 x 5.0 x 4.7 cm Right Kidney: No hydronephrosis or masses seen Left Kidney: No hydronephrosis or masses seen Bladder: Appears anechoic. Bilateral Jets seen: Yes Slightly limited due to body habitus. IMPRESSION: Normal bilateral renal sonogram. No evidence of renal mass or obstruction.
--- NOTE | 2019-12-10 22:59 | ED ---
General Adult HPI - General Chief complaint: Abdominal Pain Stated complaint: Blood in urine Time Seen by Provider: 12/10/19 19:47 Source: patient, RN notes reviewed, old records reviewed Mode of arrival: ambulatory Limitations: no limitations - History of Present Illness Initial comments: 32-year-old female patient past history significant for hysterectomy, hepatitis C presents to ED for chief complaint of left flank pain which started earlier today. Patient reports that she has history of kidney stones and this feels identical. Also reports that she's been having blood in her urine. States she has had nausea but emesis. Denies any other complaints. Systemic: Pt denies fatigue, fever/chills, rash. Pt denies weakness, night sweats, weight loss. Neuro: Pt denies headache, visual disturbances, syncope or pre-syncope. HEENT: Pt denies ocular discharge or irritation, otalgia, rhinorrhea, pharyngitis or notable lymphadenopathy. Cardiopulmonary: Pt denies chest pain, SOB, heart palpitations, dyspnea on exertion. Abdominal/GI: Pt denies v/d. : Pt denies dysuria, burning w/ urination, frequency/urgency. Denies new onset urinary or bowel incontinence. MSK: Pt denies myalgia, loss of strength or function in extremities. Neuro: Pt denies new onset weakness, paresthesias. - Related Data Previous Rx's Medication Instructions Recorded Cephalexin [Keflex] 500 mg PO Q6HR 10 Days #40 cap 12/10/19 Tamsulosin [Flomax] 0.4 mg PO DAILY #10 cap 12/10/19 Allergies Allergy/AdvReac Type Severity Reaction Status Date / Time acetaminophen Allergy Dyspnea Verified 12/10/19 20:41 [From Darvocet-N] ciprofloxacin [From Cipro] Allergy Nausea & Verified 12/10/19 20:41 Vomiting ketorolac [From Toradol] Allergy Rash/Hives Verified 12/10/19 20:41 meperidine [From Demerol] Allergy Rash/Hives Verified 12/10/19 20:41 propoxyphene Allergy Dyspnea Verified 12/10/19 20:41 [From Darvocet-N] Review of Systems ROS Statement: Those systems with pertinent positive or pertinent negative responses have been documented in the HPI. ROS Other: All systems not noted in ROS Statement are negative. Past Medical History Past Medical History: No Reported History Additional Past Medical History / Comment(s): hep C History of Any Multi-Drug Resistant Organisms: None Reported Past Surgical History: Section, Hysterectomy Additional Past Surgical History / Comment(s): laparoscopy Past Psychological History: No Psychological Hx Reported Smoking Status: Current every day smoker Past Alcohol Use History: None Reported Past Drug Use History: None Reported General Exam - General Exam Comments Initial Comments: Constitutional: NAD, AOX3, Pt has pleasant affect. HEENT: NC/AT, trachea midline, neck supple, no lymphadenopathy. Posterior pharynx non erythematous, without exudates. External ears appear normal, without discharge. Mucous membranes moist. Eyes PERRLA, EOM intact. There is no scleral icterus. No pallor noted. Cardiopulmonary: RRR, no murmurs, rubs or gallops, no JVD noted. Lungs CTAB in anterior and posterior marie. No peripheral edema. Abdominal exam: Abdomen soft and non-distended. Left mid flank region mildly tender to palpation. Very mild amount of left lower flank left lower quadrant tenderness as well.. Bowel sounds active in LLQ. No hepatosplenomegaly. No ecchymosis Neuro: CN II-XII grossly intact. No nuchal rigidity. No raccon eyes, no morris sign, no hemotympanum. No cervical spinal tenderness. MSK: No posterior calf tenderness bilaterally, homans sign negative bilaterally. Posterior tibialis and radial pulse +2 bilaterally. Sensation intact in upper and lower extremities. Full active ROM in upper and lower extremities, 5/5 stregnth. Limitations: no limitations Course Vital Signs 12/10/19 19:15 Temperature 98.3 F Pulse Rate 84 Respiratory 18 Rate Blood Pressure 100/62 O2 Sat by Pulse 99 Oximetry Medical Decision Making - Medical Decision Making 32-year-old female patient past history significant for hysterectomy, hepatitis C presents to ED for chief complaint of left flank pain which started earlier t loco. Patient reports that she has history of kidney stones and this feels identical. Also reports that she's been having blood in her urine. States she has had nausea but emesis. Denies any other complaints. Pt VSS, afebrile. Physical exam displayed: Abdomen soft and non-distended. Left mid flank region mildly tender to palpation. Very mild amount of left lower flank left lower quadrant tenderness as well. Laboratory investigations revealed greater than 182 red blood cells. 22 white blood cells. Small leukocyte esterase. Renal ultrasound KUB demonstrate acute pathology. Patient improved with analgesia. Presentation consistent with ureteral calculi. Patient will be initiated on Flomax, will be discharged with urology follow-up tomorrow. Patient also be discharged with antibiotics as well. Return to ER if condition worsens. Case discussed with Dr. Albright. - Lab Data Result diagrams: 12/10/19 20:00 12/10/19 20:00 Lab Results 12/10/19 12/10/19 12/10/19 Range/Units 20:00 20:00 20:00 WBC 6.9 (3.8-10.6) k/uL RBC 4.35 (3.80-5.40) m/uL Hgb 13.0 (11.4-16.0) gm/dL Hct 38.0 (34.0-46.0) % MCV 87.4 (80.0-100.0) fL MCH 29.8 (25.0-35.0) pg MCHC 34.1 (31.0-37.0) g/dL RDW 13.5 (11.5-15.5) % Plt Count 174 (150-450) k/uL Neutrophils % 69 % Lymphocytes % 24 % Monocytes % 4 % Eosinophils % 2 % Basophils % 0 % Neutrophils # 4.7 (1.3-7.7) k/uL Lymphocytes # 1.6 (1.0-4.8) k/uL Monocytes # 0.3 (0-1.0) k/uL Eosinophils # 0.1 (0-0.7) k/uL Basophils # 0.0 (0-0.2) k/uL Sodium (137-145) mmol/L Potassium (3.5-5.1) mmol/L Chloride (98-107) mmol/L Carbon Dioxide (22-30) mmol/L Anion Gap mmol/L BUN (7-17) mg/dL Creatinine (0.52-1.04) mg/dL Est GFR (CKD-EPI)AfAm (>60 ml/min/1.73 sqM) Est GFR (CKD-EPI)NonAf (>60 ml/min/1.73 sqM) Glucose (74-99) mg/dL Calcium (8.4-10.2) mg/dL Total Bilirubin (0.2-1.3) mg/dL AST (14-36) U/L ALT (4-34) U/L Alkaline Phosphatase (38-126) U/L Total Protein (6.3-8.2) g/dL Albumin (3.5-5.0) g/dL Lipase (23-300) U/L Urine Color Red Urine Appearance Cloudy H (Clear) Urine pH 6.0 (5.0-8.0) Ur Specific [place] 1.024 (1.001-1.035) Urine Protein 1+ H (Negative) Urine Glucose (UA) Negative (Negative) Urine Ketones Negative (Negative) Urine Blood Large H (Negative) Urine Nitrite Negative (Negative) Urine Bilirubin Negative (Negative) Urine Urobilinogen <2.0 (<2.0) mg/dL Ur Leukocyte Esterase Small H (Negative) Urine RBC >182 H (0-5) /hpf Urine WBC 22 H (0-5) /hpf Urine Mucus Moderate H (None) /hpf Urine HCG, Qual Not Detected (Not Detectd) 12/10/19 Range/Units 20:00 WBC (3.8-10.6) k/uL RBC (3.80-5.40) m/uL Hgb (11.4-16.0) gm/dL Hct (34.0-46.0) % MCV (80.0-100.0) fL MCH (25.0-35.0) pg MCHC (31.0-37.0) g/dL RDW (11.5-15.5) % Plt Count (150-450) k/uL Neutrophils % % Lymphocytes % % Monocytes % % Eosinophils % % Basophils % % Neutrophils # (1.3-7.7) k/uL Lymphocytes # (1.0-4.8) k/uL Monocytes # (0-1.0) k/uL Eosinophils # (0-0.7) k/uL Basophils # (0-0.2) k/uL Sodium 139 (137-145) mmol/L Potassium 3.9 (3.5-5.1) mmol/L Chloride 103 (98-107) mmol/L Carbon Dioxide 26 (22-30) mmol/L Anion Gap 10 mmol/L BUN 17 (7-17) mg/dL Creatinine 0.81 (0.52-1.04) mg/dL Est GFR (CKD-EPI)AfAm >90 (>60 ml/min/1.73 sqM) Est GFR (CKD-EPI)NonAf >90 (>60 ml/min/1.73 sqM) Glucose 97 (74-99) mg/dL Calcium 9.9 (8.4-10.2) mg/dL Total Bilirubin <0.1 L (0.2-1.3) mg/dL AST 21 (14-36) U/L ALT 21 (4-34) U/L Alkaline Phosphatase 64 (38-126) U/L Total Protein 7.7 (6.3-8.2) g/dL Albumin 4.4 (3.5-5.0) g/dL Lipase 73 (23-300) U/L Urine Color Urine Appearance (Clear) Urine pH (5.0-8.0) Ur Specific [place] (1.001-1.035) Urine Protein (Negative) Urine Glucose (UA) (Negative) Urine Ketones (Negative) Urine Blood (Negative) Urine Nitrite (Negative) Urine Bilirubin (Negative) Urine Urobilinogen (<2.0) mg/dL Ur Leukocyte Esterase (Negative) Urine RBC (0-5) /hpf Urine WBC (0-5) /hpf Urine Mucus (None) /hpf Urine HCG, Qual (Not Detectd) Disposition Clinical Impression: Flank pain, Kidney stone Disposition: HOME SELF-CARE Condition: Stable Instructions (If sedation given, give patient instructions): Kidney Stones (ED) Additional Instructions: Follow-up with primary care provider as well as urologist tomorrow. Take medications as directed. Return to ER if condition worsens in any way. Prescriptions: Tamsulosin [Flomax] 0.4 mg PO DAILY #10 cap Cephalexin [Keflex] 500 mg PO Q6HR 10 Days #40 cap Is patient prescribed a controlled substance at d/c from ED?: No Referrals: None,Stated [Primary Care Provider] - 1-2 days Robert Chacon MD [STAFF PHYSICIAN] - 1-2 days
[2019-12-10] MEDS ORDERED: ACET/COD 300 MG/30 MG STARTER PACK 6 TAB BTL PO STA (23:07)
[2019-12-10 23:32] VITALS: BP 110/56; PULSE 82; RESP 20
== END 2019-12-10 23:10 | disposition home or self-care (01) ==
LOC: EC 18:29
DX: N20.0 Calculus of kidney (principal); B19.20 Unspecified viral hepatitis C without hepatic coma; F17.200 Nicotine dependence, unspecified, uncomplicated; Z88.6 Allergy status to analgesic agent; Z88.1 Allergy status to other antibiotic agents; Z88.5 Allergy status to narcotic agent; Z88.8 Allergy status to other drugs, medicaments and biological substances; Z90.710 Acquired absence of both cervix and uterus
CPT/HCPCS: 36415; 80053; 83690; 85025; 81001; 81025; 87086; 74018; 76770; 99285; 96365; 96375 ×2; 96376; 96361; J2270; J2405; J0696